=== PATIENT | male | born 1930 ===

== ENCOUNTER → 2018-11-15 | Outpatient (CLI) | payer MEDICARE, OTHER ==
[2018-11-15 08:41] LABS: INR 3.23
== END ==
LOC: LAB 08:06
PROVIDERS: ATTEND Nurse Practitioner
DX: Z51.81 Encounter for therapeutic drug level monitoring (principal); I48.2 Chronic atrial fibrillation; I63.10 Cerebral infarction due to embolism of unspecified precerebral artery
CPT/HCPCS: 36415; 85610